=== PATIENT | male | born 1940 | race Caucasian/White ===

== ENCOUNTER 2017-07-02 13:39 | Emergency (ER) | payer MEDICARE ==
[2017-07-02 13:46] VITALS: RESP 16
[2017-07-02] MEDS ORDERED: LABETALOL 5 MG/ML VIAL MDV IVP STA (14:18)
[2017-07-02] MEDS ORDERED: SODIUM CHLORIDE 0.9% 1,000 ML IV STA (14:18)
--- NOTE | 2017-07-02 14:26 | ED ---
General Adult HPI - General Chief complaint: Dizziness Stated complaint: Dizzy, High BP Time Seen by Provider: 07/02/17 13:48 Source: patient, RN notes reviewed, old records reviewed Mode of arrival: wheelchair Limitations: no limitations - History of Present Illness Initial comments: This is a 76-year-old male the ER for evaluation of blood pressure. 2 days of increased anxiety and stress patient also noticed elevated blood pressure. Patient's neighbor and friend is brought patient in for evaluation, patient asymptomatic has no complaints of chest and first of breath no abdominal pain. Patient states he has been taking all his medications as prescribed, but does state his blood pressure seems to rise throughout the day - Related Data Home Medications Medication Instructions Recorded Confirmed Aspirin 325 mg PO DAILY 07/02/17 07/02/17 Atorvastatin [Lipitor] 40 mg PO HS 07/02/17 07/02/17 Furosemide [Lasix] 20 mg PO DAILY 07/02/17 07/02/17 Insulin Aspart Protam & Aspart 12 unit SQ AC-BID 07/02/17 07/02/17 [Novolog Mix 70-30 Flexpen Syrn] Losartan/Hydrochlorothiazide 1 tab PO DAILY 07/02/17 07/02/17 [Hyzaar 100-25 Tablet] Multivitamins, Thera [Multivitamin 1 tab PO DAILY 07/02/17 07/02/17 (formulary)] cloNIDine HCL 0.3 mg PO BID 07/02/17 07/02/17 metFORMIN HCL 1,000 mg PO BID 07/02/17 07/02/17 Allergies Allergy/AdvReac Type Severity Reaction Status Date / Time No Known Allergies Allergy Verified 07/02/17 14:19 Review of Systems ROS Statement: Those systems with pertinent positive or pertinent negative responses have been documented in the HPI. ROS Other: All systems not noted in ROS Statement are negative. Past Medical History Past Medical History: Coronary Artery Disease (CAD), Diabetes Mellitus, Hyperlipidemia, Hypertension History of Any Multi-Drug Resistant Organisms: None Reported Past Surgical History: No Surgical Hx Reported Past Psychological History: No Psychological Hx Reported Smoking Status: Former smoker Past Alcohol Use History: None Reported Past Drug Use History: None Reported General Exam Limitations: no limitations General appearance: alert, in no apparent distress Head exam: Present: atraumatic, normocephalic, normal inspection Eye exam: Present: normal appearance, PERRL, EOMI. Absent: scleral icterus, conjunctival injection, periorbital swelling ENT exam: Present: normal exam, mucous membranes moist Neck exam: Present: normal inspection. Absent: tenderness, meningismus, lymphadenopathy Respiratory exam: Present: normal lung sounds bilaterally. Absent: respiratory distress, wheezes, rales, rhonchi, stridor Cardiovascular Exam: Present: regular rate, normal rhythm, normal heart sounds. Absent: systolic murmur, diastolic murmur, rubs, gallop, clicks GI/Abdominal exam: Present: soft, normal bowel sounds. Absent: distended, tenderness, guarding, rebound, rigid Extremities exam: Present: normal inspection, full ROM, normal capillary refill. Absent: tenderness, pedal edema, joint swelling, calf tenderness Back exam: Present: normal inspection Neurological exam: Present: alert, oriented X3, CN II-XII intact Psychiatric exam: Present: normal affect, normal mood Skin exam: Present: warm, dry, intact, normal color. Absent: rash Course Vital Signs 07/02/17 07/02/17 07/02/17 13:42 14:53 15:46 Temperature 97.6 F 97 F L Pulse Rate 71 69 53 L Respiratory 16 16 16 Rate Blood Pressure 184/80 185/79 172/79 O2 Sat by Pulse 97 97 96 Oximetry 07/02/17 15:53 Temperature Pulse Rate 59 L Respiratory 16 Rate Blood Pressure 167/77 O2 Sat by Pulse Oximetry EKG Findings - EKG Comments: EKG Findings:: EKG shows sinus rhythm rate of 63, UT 150, QRS 92, QTC 452 Medical Decision Making - Medical Decision Making 76 male with elevated blood pressure labwork is normal, patient's blood pressure is improved since he has no complaints and remains a symptomatic, temperature discharged home - Lab Data Result diagrams: 07/02/17 14:04 07/02/17 14:04 Lab Results 07/02/17 07/02/17 07/02/17 Range/Units 14:04 14:04 14:04 WBC 5.3 (3.8-10.6) k/uL RBC 4.32 (4.30-5.90) m/uL Hgb 13.5 (13.0-17.5) gm/dL Hct 40.2 (39.0-53.0) % MCV 93.2 (80.0-100.0) fL MCH 31.2 (25.0-35.0) pg MCHC 33.4 (31.0-37.0) g/dL RDW 14.1 (11.5-15.5) % Plt Count 143 L (150-450) k/uL Neutrophils % 61 % Lymphocytes % 24 % Monocytes % 7 % Eosinophils % 5 % Basophils % 1 % Neutrophils # 3.2 (1.3-7.7) k/uL Lymphocytes # 1.3 (1.0-4.8) k/uL Monocytes # 0.4 (0-1.0) k/uL Eosinophils # 0.3 (0-0.7) k/uL Basophils # 0.1 (0-0.2) k/uL Sodium 140 (137-145) mmol/L Potassium 4.5 (3.5-5.1) mmol/L Chloride 102 (98-107) mmol/L Carbon Dioxide 29 (22-30) mmol/L Anion Gap 9 mmol/L BUN 25 H (9-20) mg/dL Creatinine 1.05 (0.66-1.25) mg/dL Est GFR (MDRD) Af Amer >60 (>60 ml/min/1.73 sqM) Est GFR (MDRD) Non-Af >60 (>60 ml/min/1.73 sqM) Glucose 172 H (74-99) mg/dL Calcium 9.7 (8.4-10.2) mg/dL Phosphorus 3.1 (2.5-4.5) mg/dL Magnesium 1.3 L (1.6-2.3) mg/dL Total Bilirubin 0.7 (0.2-1.3) mg/dL AST 37 (17-59) U/L ALT 41 (21-72) U/L Alkaline Phosphatase 76 (38-126) U/L Total Creatine Kinase 104 (55-170) U/L CK-MB (CK-2) 1.5 (0.0-2.4) ng/mL CK-MB (CK-2) Rel Index 1.4 Troponin I <0.012 (0.000-0.034) ng/mL Total Protein 7.6 (6.3-8.2) g/dL Albumin 4.3 (3.5-5.0) g/dL Disposition Clinical Impression: Hypertension, uncontrolled Disposition: HOME SELF-CARE Condition: Good Instructions: Hypertension (ED) Referrals: Jermain Romero DO [Primary Care Provider] - 1-2 days
[2017-07-02 14:40] LABS: Basophils # (A) 0.1 k/uL (0-0.2); Basophils % (A) 1 %; Eosinophils # (A) 0.3 k/uL (0-0.7); Eosinophils % (A) 5 %; HCT 40.2 % (39.0-53.0); HGB 13.5 gm/dL (13.0-17.5); Lymphocytes # (A) 1.3 k/uL (1.0-4.8); Lymphocytes % (A) 24 %; MCH 31.2 pg (25.0-35.0); MCHC 33.4 g/dL (31.0-37.0); MCV 93.2 fL (80.0-100.0); Mean Platelet Volume 10.2; Monocytes # (A) 0.4 k/uL (0-1.0); Monocytes % (A) 7 %; Neutrophils # (A) 3.2 k/uL (1.3-7.7); Neutrophils % (A) 61 %; Platelet Count 143 k/uL (150-450); RBC 4.32 m/uL (4.30-5.90); RDW 14.1 % (11.5-15.5); WBC 5.3 k/uL (3.8-10.6)
[2017-07-02 14:49] LABS: ALT 41 U/L (21-72); AST 37 U/L (17-59); Albumin 4.3 g/dL (3.5-5.0); Alkaline Phosphatase 76 U/L (38-126); Anion Gap 9 mmol/L; Blood Urea Nitrogen 25 mg/dL (9-20); Calcium 9.7 mg/dL (8.4-10.2); Carbon Dioxide 29 mmol/L (22-30); Chloride 102 mmol/L (98-107); Glucose 172 mg/dL (74-99); Magnesium 1.3 mg/dL (1.6-2.3); Phosphorus 3.1 mg/dL (2.5-4.5); Potassium 4.5 mmol/L (3.5-5.1); Sodium 140 mmol/L (137-145); Total Bilirubin 0.7 mg/dL (0.2-1.3); Total Protein 7.6 g/dL (6.3-8.2)
[2017-07-02 15:02] LABS: Creatine Kinase 104 U/L (55-170)
[2017-07-02] MEDS ORDERED: MAGNESIUM OXIDE 400 MG TAB PO STA (15:06)
[2017-07-02] MEDS ORDERED: hydrALAZINE HCL 20 MG/ML 1 ML VIAL IVP STA (15:06)
[2017-07-02 15:15] LABS: Creatine Kinase MB 1.5 ng/mL (0.0-2.4); Troponin I <0.012 ng/mL (0.000-0.034)
[2017-07-02 15:48] VITALS: TEMP 97
[2017-07-02 15:54] VITALS: BP 167/77; PULSE 59
== END 2017-07-02 16:29 | disposition home or self-care (01) ==
LOC: EC 13:39
DX: I10 Essential (primary) hypertension (principal); F41.9 Anxiety disorder, unspecified; R42 Dizziness and giddiness; I25.10 Atherosclerotic heart disease of native coronary artery without angina pectoris; E11.9 Type 2 diabetes mellitus without complications; E78.5 Hyperlipidemia, unspecified; Z87.891 Personal history of nicotine dependence; Z79.82 Long term (current) use of aspirin; Z79.4 Long term (current) use of insulin; Z79.899 Other long term (current) drug therapy
CPT/HCPCS: 36415; 80053; 82550; 82553; 83735; 84100; 84484; 85025; 93005; 96361; 96374; 99284

== ENCOUNTER → 2019-06-05 | Outpatient (CLI) | payer MEDICARE ==
[~2019-06-05] MED LIST: REGADENOSON 0.4 MG/5 ML SYRINGE IV ONE
--- NOTE | 2019-06-05 11:01 | ECHOF ---
Referral Reason:I10 Hypertension, I65.21 Stenosis of carotid MEASUREMENTS -------- HEIGHT: 170.2 cm WEIGHT: 87.5 kg BP: RVIDd: 3.8 cm (< 3.3) IVSd: 1.3 cm (0.6 - 1.1) LVIDd: 4.2 cm (3.9 - 5.3) LVPWd: 1.3 cm (0.6 - 1.1) IVSs: 1.7 cm LVIDs: 2.4 cm LVPWs: 1.9 cm LAESV Index (A-L): 27.04 ml/m Ao Diam: 3.0 cm (2.0 - 3.7) AV Cusp: 1.6 cm (1.5 - 2.6) LA Diam: 4.1 cm (2.7 - 3.8) MV E Kristian: 0.70 m/s MV DecT: 258 ms MV A Kristian: 0.75 m/s MV E/A Ratio: 0.94 RAP: 5.00 mmHg RVSP: 18.48 mmHg FINDINGS -------- Sinus rhythm. This was a technically adequate study. The left ventricular size is normal. There is mild concentric left ventricular hypertrophy. Overa ll left ventricular systolic function is normal with, an EF between 60 - 65 %. The diastolic fillin g pattern is normal for the age of the patient 8.37. The right ventricle is mild to moderately enlarged. Normal LA size by volume 22+/-6 ml/m2. The right atrial size is normal. Interatrial and interventricular septum intact. There is mild aortic valve sclerosis. There is no evidence of aortic regurgitation. There is no e vidence of aortic stenosis. Mild mitral regurgitation is present. Mild tricuspid regurgitation present. There is no evidence of pulmonary hypertension. The right v entricular systolic pressure, as measured by Doppler, is 18.48mmHg. There is no pulmonic regurgitation present. The aortic root size is normal. Normal inferior vena cava with normal inspiratory collapse consistent with estimated right atrial pre ssure of 5 mmHg. There is no pericardial effusion. CONCLUSIONS -------- 1. Sinus rhythm. 2. This was a technically adequate study. 3. The left ventricular size is normal. 4. There is mild concentric left ventricular hypertrophy. 5. Overall left ventricular systolic function is normal with, an EF between 60 - 65 %. 6. The diastolic filling pattern is normal for the age of the patient 8.37 7. The right ventricle is mild to moderately enlarged. 8. Normal LA size by volume 22+/-6 ml/m2. 9. The right atrial size is normal. 10. Interatrial and interventricular septum intact. 11. There is mild aortic valve sclerosis. 12. There is no evidence of aortic regurgitation. 13. There is no evidence of aortic stenosis. 14. Mild mitral regurgitation is present. 15. Mild tricuspid regurgitation present. 16. There is no evidence of pulmonary hypertension. 17. The right ventricular systolic pressure, as measured by Doppler, is 18.48mmHg. 18. There is no pulmonic regurgitation present. 19. The aortic root size is normal. 20. Normal inferior vena cava with normal inspiratory collapse consistent with estimated right atrial pressure of 5 mmHg. 21. There is no pericardial effusion. [employer] SUPERVISOR: Trinity Jacobo RDCS
--- NOTE | 2019-06-05 12:13 | EST ---
EXERCISE STRESS DATE OF SERVICE: 06/05/2019 AGE: 78 SEX: Male HT: 5'7" WT: 193 PROTOCOL: Lexiscan Cardiolite STAGE: DURATION OF EXERCISE: HEART RATE REST: 50 BLOOD PRESSURE REST: 141/62 MAXIMUM HEART RATE ACHIEVED: 80 MAXIMUM BLOOD PRESSURE: 143/68 85% MPHR: 100% MPHR: METS: INDICATIONS: CLINICAL INFORMATION: Baseline EKG revealed normal sinus rhythm with inferolateral nonspecific ST depression. With Lexiscan administration heart rate changed from 50 to 80 beats per minute. Blood pressure changed from 141/62 to 143/68. EKG remained inconclusive and patient did not have any significant symptoms. ST-segment abnormality that was seen to begin with became slightly more prominent making this an inconclusive Lexiscan stress test. By EKG criteria, this is an inconclusive Lexiscan stress test with underlying resting ST-segment abnormality. The nuclear scan results which are more pertinent will be reported by the radiologist. NINIL / IJN: [id number] /
--- NOTE | 2019-06-05 12:19 | NM ---
EXAMINATION TYPE: NM stress lexiscan cardiolite DATE OF EXAM: 06/05/2019 COMPARISON: NONE HISTORY: 78-year-old male with carotid stenosis, hypertension, diabetes, hypercholesterolemia, family history, history of tobacco use. TECHNIQUE: After the intravenous administration of 10.1 mCi Tc 99m Sestamibi - Cardiolite resting SP ECT images acquired 45 minutes post injection. The patient received 0.4mg Lexiscan, 25.9 mCi Tc 99m Sestamibi - Stress images obtained [address] injection FINDINGS: Review of stress and rest SPECT images demonstrates small to moderate area of reversibility along the anteroseptal mid to apical wall. Gated analysis shows some hypokinesis in this region. There is an e stimated left ventricular ejection fraction of 65 %. TID is calculated at 1.07, within normal limits . IMPRESSION: Exam positive for reversibility along the mid to apical anteroseptal wall.
== END | disposition home or self-care (01) ==
LOC: RADNMMAIN 07:51
PROVIDERS: ATTEND Family Medicine
DX: I08.1 Rheumatic disorders of both mitral and tricuspid valves (principal); I11.9 Hypertensive heart disease without heart failure; I65.21 Occlusion and stenosis of right carotid artery; R06.02 Shortness of breath
CPT/HCPCS: 93017; 93306; 78452; A9500; J2785

== ENCOUNTER 2019-07-10 08:52 | Observation (INO) | payer MEDICARE ==
[2019-07-10] MEDS ORDERED: SODIUM CHLORIDE 0.9% 500 ML 500 ML IV STA (09:32)
--- NOTE | 2019-07-10 09:46 | ED ---
General Adult HPI - General Chief complaint: Extremity Injury, Upper Stated complaint: rt shoulder pain Time Seen by Provider: 07/10/19 09:13 Source: patient, RN notes reviewed, old records reviewed Mode of arrival: ambulatory Limitations: no limitations - History of Present Illness Initial comments: 78-year-old male patient past medical history of coronary artery disease, type 2 diabetes, hyperlipidemia, hypertension presents to ED for chief complaint of one-week of waxing and waning right shoulder pain. Patient reports that he has been sleeping in a recliner because it is more comfortable for him and believes that this may have caused the shoulder pain or that is a pinched nerve. Denies any recent falls or trauma. Patient did recently have an abnormal stress test on 06/05/19 and is due for a heart catheterization approximately 2 weeks. Tanvi ent did recently have an echocardiogram on 1117 which displayed an ejection fraction between 60 and 65%. Patient does deny any anterior chest pain or shortness of breath. Denies any pain in the area. States that the shoulder pain is worse with range of motion, denies any pain at this time. Systemic: Pt denies fatigue, fever/chills, rash. Pt denies weakness, night sweats, weight loss. Neuro: Pt denies headache, visual disturbances, syncope or pre-syncope. HEENT: Pt denies ocular discharge or irritation, otalgia, rhinorrhea, pharyngitis or notable lymphadenopathy. Cardiopulmonary: Pt denies chest pain, SOB, heart palpitations, dyspnea on exertion. Abdominal/GI: Pt denies abdominal pain, n/v/d. : Pt denies dysuria, burning w/ urination, frequency/urgency. Denies new onset urinary or bowel incontinence. MSK: Pt denies myalgia, loss of strength or function in extremities. Neuro: Pt denies new onset weakness, paresthesias. - Related Data Home Medications Medication Instructions Recorded Confirmed Atorvastatin [Lipitor] 40 mg PO HS 07/02/17 07/10/19 Furosemide [Lasix] 40 mg PO DAILY 07/02/17 07/10/19 Losartan/Hydrochlorothiazide 1 tab PO DAILY 07/02/17 07/10/19 [Hyzaar 100-25 Tablet] Multivitamins, Thera [Multivitamin 1 tab PO DAILY 07/02/17 07/10/19 (formulary)] cloNIDine HCL 0.3 mg PO BID 07/02/17 07/10/19 metFORMIN HCL 1,000 mg PO BID 07/02/17 07/10/19 Aspirin EC [Ecotrin Low Dose] 81 mg PO DAILY 07/10/19 07/10/19 Docusate [Colace] 200 mg PO DAILY 07/10/19 07/10/19 Insulin Lispro Protamin/Lispro 12 unit SQ BID 07/10/19 07/10/19 [Humalog Mix 75-25 Kwikpen] Multivit-Min/FA/Lycopen/Lutein 1 tab PO DAILY 07/10/19 07/10/19 [Centrum Silver Men Tablet] Tamsulosin HCl [Flomax] 0.4 mg PO DAILY 07/10/19 07/10/19 Allergies Allergy/AdvReac Type Severity Reaction Status Date / Time No Known Allergies Allergy Verified 07/10/19 09:55 Review of Systems ROS Statement: Those systems with pertinent positive or pertinent negative responses have been documented in the HPI. ROS Other: All systems not noted in ROS Statement are negative. Past Medical History Past Medical History: Coronary Artery Disease (CAD), Diabetes Mellitus, Hyperlipidemia, Hypertension History of Any Multi-Drug Resistant Organisms: None Reported Past Surgical History: No Surgical Hx Reported Past Psychological History: No Psychological Hx Reported Smoking Status: Former smoker Past Alcohol Use History: None Reported Past Drug Use History: None Reported General Exam - General Exam Comments Initial Comments: Constitutional: NAD, AOX3, Pt has pleasant affect. HEENT: NC/AT, trachea midline, neck supple, no lymphadenopathy. Posterior phar ynx non erythematous, without exudates. External ears appear normal, without discharge. Mucous membranes moist. Eyes PERRLA, EOM intact. There is no scleral icterus. No pallor noted. Cardiopulmonary: RRR, no murmurs, rubs or gallops, no JVD noted. Lungs CTAB in anterior and posterior rodriguez. No peripheral edema. Abdominal exam: Abdomen soft and non-distended. Abdomen non-tender to palpation in all 4 quadrants. Bowel sounds active in LLQ. No hepatosplenomegaly. No ecchymosis Neuro: CN II-XII grossly intact. No nuchal rigidity. No raccon eyes, no acosta sign, no hemotympanum. No cervical spinal tenderness. MSK: Full active range of motion right upper extremity. Painful arc did display some diffuse swelling discomfort. No focal area of tenderness to palpation. No skin changes. No posterior calf tenderness bilaterally, homans sign negative bilaterally. Posterior tibialis and radial pulse +2 bilaterally. Sensation intact in upper and lower extremities. Full active ROM in upper and lower extremities, 5/5 stregnth. Limitations: no limitations Course Vital Signs 07/10/19 07/10/19 09:01 11:59 Temperature 97.5 F L Pulse Rate 95 90 Respiratory 18 18 Rate Blood Pressure 166/75 160/70 O2 Sat by Pulse 97 98 Oximetry Medical Decision Making - Medical Decision Making 78-year-old male patient past medical history significant for hypertension, type 2 diabetes, abnormal stress test presents to ED for chief complaint right shoulder pain. Patient reports as a waxing waning for approximately one week. Denies any pain this time, denies any injury. Physical exam displayed no skin changes, shoulder nontender to palpation. Some mild discomfort reproduced with range of motion. Vital signs are stable, afebrile. Laboratory investigation revealed mild hypomagnesemia. Troponin negative. EKG is nonischemic. Chest x- ray displayed no acute cardiopulmonary process. Admitted for week repeat x-ray for possible nodule. 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 No acute osseous abnormality seen. Shoulder is nontender there is no mention injury and patient does have history of recent abnormal stress test and is scheduled for cardiac catheterization 2 weeks. I do have suspicion that this may be possible ACS equivalent. Patient will be admitted for serial troponins and cardiology evaluation. Case discussed with Dr. Velasquez. - Lab Data Result diagrams: 07/10/19 10:30 07/10/19 10:30 Lab Results 07/10/19 07/10/19 07/10/19 Range/Units 10:30 10:30 10:30 WBC 5.7 (3.8-10.6) k/uL RBC 3.71 L (4.30-5.90) m/uL Hgb 12.0 L (13.0-17.5) gm/dL Hct 34.4 L (39.0-53.0) % MCV 92.7 (80.0-100.0) fL MCH 32.4 (25.0-35.0) pg MCHC 34.9 (31.0-37.0) g/dL RDW 12.9 (11.5-15.5) % Plt Count 131 L (150-450) k/uL Neutrophils % 68 % Lymphocytes % 18 % Monocytes % 7 % Eosinophils % 4 % Basophils % 0 % Neutrophils # 3.9 (1.3-7.7) k/uL Lymphocytes # 1.0 (1.0-4.8) k/uL Monocytes # 0.4 (0-1.0) k/uL Eosinophils # 0.2 (0-0.7) k/uL Basophils # 0.0 (0-0.2) k/uL PT 10.9 (9.0-12.0) sec INR 1.0 (<1.2) APTT 23.8 (22.0-30.0) sec Sodium 139 (137-145) mmol/L Potassium 3.9 (3.5-5.1) mmol/L Chloride 104 (98-107) mmol/L Carbon Dioxide 24 (22-30) mmol/L Anion Gap 11 mmol/L BUN 28 H (9-20) mg/dL Creatinine 1.06 (0.66-1.25) mg/dL Est GFR (CKD-EPI)AfAm 79 (>60 ml/min/1.73 sqM) Est GFR (CKD-EPI)NonAf 68 (>60 ml/min/1.73 sqM) Glucose 83 (74-99) mg/dL Calcium 9.6 (8.4-10.2) mg/dL Magnesium 1.4 L (1.6-2.3) mg/dL Total Bilirubin 0.8 (0.2-1.3) mg/dL AST 33 (17-59) U/L ALT 24 (4-49) U/L Alkaline Phosphatase 66 (38-126) U/L Troponin I (0.000-0.034) ng/mL Total Protein 6.8 (6.3-8.2) g/dL Albumin 3.8 (3.5-5.0) g/dL 07/10/19 Range/Units 10:30 WBC (3.8-10.6) k/uL RBC (4.30-5.90) m/uL Hgb (13.0-17.5) gm/dL Hct (39.0-53.0) % MCV (80.0-100.0) fL MCH (25.0-35.0) pg MCHC (31.0-37.0) g/dL RDW (11.5-15.5) % Plt Count (150-450) k/uL Neutrophils % % Lymphocytes % % Monocytes % % Eosinophils % % Basophils % % Neutrophils # (1.3-7.7) k/uL Lymphocytes # (1.0-4.8) k/uL Monocytes # (0-1.0) k/uL Eosinophils # (0-0.7) k/uL Basophils # (0-0.2) k/uL PT (9.0-12.0) sec INR (<1.2) APTT (22.0-30.0) sec Sodium (137-145) mmol/L Potassium (3.5-5.1) mmol/L Chloride (98-107) mmol/L Carbon Dioxide (22-30) mmol/L Anion Gap mmol/L BUN (9-20) mg/dL Creatinine (0.66-1.25) mg/dL Est GFR (CKD-EPI)AfAm (>60 ml/min/1.73 sqM) Est GFR (CKD-EPI)NonAf (>60 ml/min/1.73 sqM) Glucose (74-99) mg/dL Calcium (8.4-10.2) mg/dL Magnesium (1.6-2.3) mg/dL Total Bilirubin (0.2-1.3) mg/dL AST (17-59) U/L ALT (4-49) U/L Alkaline Phosphatase (38-126) U/L Troponin I <0.012 (0.000-0.034) ng/mL Total Protein (6.3-8.2) g/dL Albumin (3.5-5.0) g/dL - EKG Data -: EKG Interpreted by Me (and Dr. Velasquez) EKG Comments: Ventricular rate 61,. For one 88, QRS 92, QT/QTc 434/436. Normal sensation, normal EKG, no concern for acute ischemia. Disposition Clinical Impression: Shoulder pain Narrative: Rule out atypical ACS presentation Disposition: ADMITTED IP TO THIS [facility] Condition: Fair Is patient prescribed a controlled substance at d/c from ED?: No Referrals: Jermain Romero DO [Primary Care Provider] - 1-2 days
--- NOTE | 2019-07-10 10:03 | XR ---
EXAMINATION TYPE: XR chest 2V, XR shoulder complete 3 views RT DATE OF EXAM: 07/10/2019 COMPARISON: None HISTORY: 78-year-old male with shoulder pain FINDINGS: CHEST: Heart normal size. Atherosclerotic arch calcifications. Strandy atelectasis lower lungs. Minimal nodu larity right perihilar region probably vascular shadow. 4-6 week follow-up radiograph is recommended to reassess. RIGHT SHOULDER: Mild degenerative joint space narrowing with mild to moderate marginal spurring and capsular hypertro phy at the acromioclavicular joint. Subacromial space is preserved. No tendinous or bursal calcificat ions. No acute fracture, subluxation, or dislocation. IMPRESSION: 1. No acute cardiopulmonary process. Streaky bibasilar atelectasis. A 4-6 week follow-up radiograph i s recommended to reassess right perihilar nodularity, possible summation artifact. 2. Right shoulder: Moderate AC joint OA. No acute osseous abnormality seen.
[2019-07-10 11:04] LABS: Partial Thromboplastin Time 23.8 sec (22.0-30.0); Prothrombin Time 10.9 sec (9.0-12.0)
[2019-07-10 11:06] LABS: Albumin 3.8 g/dL (3.5-5.0); Calcium 9.6 mg/dL (8.4-10.2); Magnesium 1.4 mg/dL (1.6-2.3); Potassium 3.9 mmol/L (3.5-5.1); Total Bilirubin 0.8 mg/dL (0.2-1.3); Total Protein 6.8 g/dL (6.3-8.2)
[2019-07-10 11:28] LABS: Basophils % (A) 0 %; Eosinophils # (A) 0.2 k/uL (0-0.7); Eosinophils % (A) 4 %; HCT 34.4 % (39.0-53.0); Lymphocytes % (A) 18 %; MCH 32.4 pg (25.0-35.0); MCHC 34.9 g/dL (31.0-37.0); MCV 92.7 fL (80.0-100.0); Mean Platelet Volume 9.8; Monocytes # (A) 0.4 k/uL (0-1.0); Monocytes % (A) 7 %; Neutrophils # (A) 3.9 k/uL (1.3-7.7); Neutrophils % (A) 68 %; Platelet Count 131 k/uL (150-450); RBC 3.71 m/uL (4.30-5.90); RDW 12.9 % (11.5-15.5); WBC 5.7 k/uL (3.8-10.6)
[2019-07-10] MEDS ORDERED: MAGNESIUM OXIDE 400 MG TAB PO STA (11:30)
[2019-07-10] MEDS ORDERED: NITROGLYCERIN SL TABS 0.4 MG TAB SUBLINGUAL PRN (12:07)
[2019-07-10 13:10] LABS: Glucose,Whole Blood 114 mg/dL (75-99)
[2019-07-10 17:10] LABS: Glucose,Whole Blood 177 mg/dL (75-99)
[2019-07-10] MEDS: INSULIN ASPART (NovoLOG) 100 UNIT/ML VIAL SQ SCH ×2 (18:02→20:53)
[2019-07-10] MEDS ORDERED: hydrALAZINE HCL 25 MG TAB PO PRN (18:09)
[2019-07-10] MEDS: INSULN ASP PRT/INSULIN ASPART 100 UNIT/ML 10 ML VIAL SQ SCH (19:05)
[2019-07-10 20:10] LABS: Glucose,Whole Blood 205 mg/dL (75-99)
[2019-07-10] MEDS: metFORMIN 500 MG TAB PO SCH (20:52)
[2019-07-10] MEDS: ATORVASTATIN 40 MG TAB PO SCH (20:53)
[2019-07-10] MEDS: cloNIDine HCL 0.1 MG TAB PO SCH (20:53)
[2019-07-10] MEDS ORDERED: ACETAMINOPHEN TAB 325 MG TAB PO PRN (21:15)
--- NOTE | 2019-07-10 21:23 | P.HPIM ---
History of Present Illness H&P Date: 07/10/19 Chief Complaint: right shoulder pain patient is a 78-year-old male with a hypertension, diabetes type 2 [id number], hyperlipidemia, osteoarthritis and recent abnormal stress test came to er with the complaints of right shoulder pain on and off for the past few days. Patient was seen at Dr. Lamar's office as a follow-up appointment due to recent abnormal stress test. Patient did haveright shoulder pain and also pain between the shoulder blades.denied chest pain or shortness of breath. No leg swelling. Denied any complaints of nausea or vomiting. No headache or dizziness or lightheadedness.denied any orthopnea or PND. No radiation of the pain. Patient was sent to ER to rule out ACS. Denied any trauma to the right shoulder.right shouldeand worsens with hand movement about the head. denied any cough or sputum production. No recentillnesses. Patient had abnormal stress test on 06/05/2019. Patient is scheduled for cardiac catheterization approximately2 weeks from now.recent echocardiograejection fractn 60-60%. chest x-ray and right shoulder x-ray showed no acute cardiopulmonary process. Streaky bibasilar atelectasis. right shoulder OA joint osteoarthritis. No acute osseous abnormalities noted. EKG showed normal sinus rhythm. Troponin 2 negative. BUN 28 magnesium 1.4 blood pressure 165/80 on admission. Review of Systems Constitutional: Patient denies any fever or chills . No generalized weakness or weight loss. Abdomen: Patient denied nausea vomiting and diarrhea and abdominal pain. Cardiovascular: Patient denies any chest pain or short of breath no palpitations. Respiratory: patient denied any cough is from production. No shortness of breath Neurologic: Patient denied any numbness or tingling headache. Musculoskeletal: patient does have right shoulder painand pain in beween the shoulder blades.. Skin: Negative Psychiatric: Negative Endocrine: No heat or cold intolerance. No recent weight gain. Genitourinary: No dysuria or hematuria. All other 14 point ROS negative except the above Past Medical History Past Medical History: Coronary Artery Disease (CAD), Diabetes Mellitus, Hyperlipidemia, Hypertension, Osteoarthritis (OA) Additional Past Medical History / Comment(s): Recent abnormal stress test-to have cardiac cath in 2 weeks, IDDM type II, past bilateral feet neuropathy but pt states no longer a problem, occasional R posterior neck pain, difficulty urinating at times, past bilateral ankle edema, vertigo if stands too quickly and loses balance. History of Any Multi-Drug Resistant Organisms: None Reported Past Surgical History: No Surgical Hx Reported Additional Past Surgical History / Comment(s): L arm skin cancer removed Past Anesthesia/Blood Transfusion Reactions: Unable to Obtain Additional Past Anesthesia/Blood Transfusion Reaction / Comment(s): Pt has never had general/spinal anesthesia Smoking Status: Former smoker - Past Family History Mother Family Medical History: No Reported History Additional Family Medical History / Comment(s): Mother was healthy and lived to be 92 yrs old. Father Additional Family Medical History / Comment(s): Father choked and suffered a [place] and at the age of 75yrs. Medications and Allergies Home Medications Medication Instructions Recorded Confirmed Type Atorvastatin [Lipitor] 40 mg PO HS 07/02/17 07/10/19 History Furosemide [Lasix] 40 mg PO DAILY 07/02/17 07/10/19 History Losartan/Hydrochlorothiazide 1 tab PO DAILY 07/02/17 07/10/19 History [Hyzaar 100-25 Tablet] Multivitamins, Thera [Multivitamin 1 tab PO DAILY 07/02/17 07/10/19 History (formulary)] cloNIDine HCL 0.3 mg PO BID 07/02/17 07/10/19 History metFORMIN HCL 1,000 mg PO BID 07/02/17 07/10/19 History Aspirin EC [Ecotrin Low Dose] 81 mg PO DAILY 07/10/19 07/10/19 History Docusate [Colace] 200 mg PO DAILY 07/10/19 07/10/19 History Insulin Lispro Protamin/Lispro 12 unit SQ BID 07/10/19 07/10/19 History [Humalog Mix 75-25 Kwikpen] Multivit-Min/FA/Lycopen/Lutein 1 tab PO DAILY 07/10/19 07/10/19 History [Centrum Silver Men Tablet] Tamsulosin HCl [Flomax] 0.4 mg PO DAILY 07/10/19 07/10/19 History Allergies Allergy/AdvReac Type Severity Reaction Status Date / Time No Known Allergies Allergy Verified 07/10/19 09:55 Physical Exam Vitals: Vital Signs Temp Pulse Resp BP Pulse Ox 07/10/19 13:30 68 18 167/71 97 07/10/19 12:07 98.6 F 75 17 175/70 95 07/10/19 11:59 90 18 160/70 98 07/10/19 09:01 97.5 F L 95 18 166/75 97 Intake and Output 07/10/19 07/10/19 07/10/19 06:59 14:59 22:59 Other: Weight 88.451 kg 88.451 kg PHYSICAL EXAMINATION: Patient is lying in the bed comfortably, no acute distress, awake alert and oriented.. HEENT: Normocephalic. Neck is supple. Pupils reactive. Nostrils clear. Oral cavity is moist. Ears reveal no drainage. Neck reveals no JVD, carotid bruits, or thyromegaly. CHEST EXAMINATION: Trachea is central. Symmetrical expansion. bibasilar diminished air entry.Lung rodriguez clear to auscultation and percussion. CARDIAC: Normal S1, S2 with no gallops. No murmurs ABDOMEN: Soft. Bowel sounds normal. No organomegaly. No abdominal bruits. Extremities: reveal no edema. No clubbing or cyanosis Neurologically awake, alert, oriented x3 with well-coordinated movements. No focal deficits noted Skin: No rash or skin lesions. Psychiatric: Coperative. Nonsuicidal Musculoskeletal: No joint swelling or deformity. Normal range of motion. tenderness over the right AC joint. Results CBC & Chem 7: 07/10/19 10:30 07/10/19 10:30 Labs: Abnormal Lab Results - Last 24 Hours (Table) 07/10/19 07/10/19 07/10/19 Range/Units 10:30 10:30 12:58 RBC 3.71 L (4.30-5.90) m/uL Hgb 12.0 L (13.0-17.5) gm/dL Hct 34.4 L (39.0-53.0) % Plt Count 131 L (150-450) k/uL BUN 28 H (9-20) mg/dL POC Glucose (mg/dL) 114 H (75-99) mg/dL Magnesium 1.4 L (1.6-2.3) mg/dL Thrombosis Risk Factor Assmnt - DVT/VTE Prophylaxis DVT/VTE Prophylaxis: Pharmacologic Prophylaxis ordered - Choose All That Apply Any of the Below Risk Factors Present?: Yes Each Factor Represents 1 point: Obesity (BMI >25) Other Risk Factors: Yes Each Risk Factor Represents 2 Points: Malignancy Each Risk Factor Represents 3 Points: Age 75 years or older Other congenital or acquired thrombophilia - If yes, enter type in comment: No Thrombosis Risk Factor Assessment Total Risk Factor Score: 6 Thrombosis Risk Factor Assessment Level: High Risk Assessment and Plan Assessment: atypical chest pain. right shoulder pain and pain between the shoulder blades.likely musculoskeletal. Rule out ACS due to recent abnormal stress test Abnormal stress test on 06/05/2019. Scheduled for cardiac catheterization as an outpatient Uncontrolled hypertension Hypomagnesemia diabetes type [id number] Hyperlipidemia Osteoarthritis Bilateral feet diabeticperipheral neuropathy. Chronic right-sided neck pain Previous history of smoking DVT prophylaxisheparin subcu plan: Patient will be continued on telemetry monitoring. Serial troponins.and continue with pain management for shoulder pain. Insulin sliding scale and f ollow closely. cardiology was consulted. Further recommendations based on the clinical course. Time with Patient: Greater than 30
[2019-07-10] MEDS: MAGNESIUM SULFATE-D5W PMX 1 GM in DEXTROSE/WATER 1 100ML.BAG IVPB SCH ×2 (21:45→23:00)
[2019-07-10] MEDS: HEPARIN SODIUM,PORCINE 5,000 UNIT/ML 1 ML VIAL SQ SCH (23:00)
[2019-07-11 06:22] LABS: Glucose,Whole Blood 113 mg/dL (75-99)
[2019-07-11] MEDS: INSULIN ASPART (NovoLOG) 100 UNIT/ML VIAL SQ SCH ×4 (06:37→21:46)
[2019-07-11] MEDS: INSULN ASP PRT/INSULIN ASPART 100 UNIT/ML 10 ML VIAL SQ SCH ×2 (06:37→17:08)
[2019-07-11 06:54] LABS: HCT 33.4 % (39.0-53.0); HGB 11.9 gm/dL (13.0-17.5); MCH 33.2 pg (25.0-35.0); MCHC 35.6 g/dL (31.0-37.0); MCV 93.3 fL (80.0-100.0); Mean Platelet Volume 9.9; Platelet Count 131 k/uL (150-450); RBC 3.58 m/uL (4.30-5.90); RDW 12.9 % (11.5-15.5); WBC 5.3 k/uL (3.8-10.6)
[2019-07-11 07:13] LABS: African American GFR (CKD) >90 (>60 ml/min/1.73 sqM); Anion Gap 8 mmol/L; Calcium 9.2 mg/dL (8.4-10.2); Carbon Dioxide 28 mmol/L (22-30); Chloride 105 mmol/L (98-107); Cholesterol 83 mg/dL (<200); Glucose 101 mg/dL (74-99); HDL Cholesterol 31 mg/dL (40-60); LDL Cholesterol,Calculated 34 mg/dL (0-99); Magnesium 1.9 mg/dL (1.6-2.3); Non-African American GFR(CKD) 84 (>60 ml/min/1.73 sqM); Sodium 141 mmol/L (137-145); Triglycerides 91 mg/dL (<150)
[2019-07-11 07:28] LABS: Blood Urea Nitrogen 22 mg/dL (9-20); Potassium 3.8 mmol/L (3.5-5.1)
[2019-07-11] MEDS: cloNIDine HCL 0.1 MG TAB PO SCH ×2 (08:38→21:48)
[2019-07-11] MEDS: TAMSULOSIN 0.4 MG CAP.ER.24H PO SCH (08:38)
[2019-07-11] MEDS: FUROSEMIDE 40 MG TAB PO SCH (08:38)
[2019-07-11] MEDS: DOCUSATE 100 MG CAP PO SCH (08:42)
[2019-07-11] MEDS: HEPARIN SODIUM,PORCINE 5,000 UNIT/ML 1 ML VIAL SQ SCH ×2 (08:43→17:08)
[2019-07-11] MEDS: ASPIRIN 81 MG PO SCH (08:43)
[2019-07-11] MEDS: LOSARTAN-HCTZ 50-12.5 MG 1 EACH TAB PO SCH (08:44)
[2019-07-11] MEDS ORDERED: ASPIRIN 325 MG TAB PO SCH (09:00)
[2019-07-11 11:03] LABS: Glucose,Whole Blood 178 mg/dL (75-99)
[2019-07-11] MEDS ORDERED: LIDOCAINE 1% INJ 10MG/ML (20 ML MDV) ONE (11:09)
[2019-07-11] MEDS ORDERED: VERAPAMIL 2.5 MG/ML 2 ML AMP ONE (11:09)
[2019-07-11] MEDS ORDERED: HEPARIN SODIUM 1,000 UN/ML (10ML VL) ONE (11:10)
--- NOTE | 2019-07-11 11:17 | P.CRDCN ---
History of Present Illness Consult date: 07/11/19 History of present illness: This is a 78-year-old gentleman with history of hypertension, diabetes2, hyperlipidemia and osteoarthritis who recently had a stress test. The stress test was reported as showing ischemia involving the anteroapical areas. He was seen by Dr. FBAIAN Lamar and is scheduled to have cardiac catheterization on july. Patient is to take him to the hospital helping a friend and started having some pain in the neck area. Patient thought he might have pulled a muscle and went to the emergency room for further evaluation. In the ER. Dimitris dominguez was evaluated and was admitted to the hospital because of recent positive stress test and possible unstable angina. His EKGs and cardiac enzymes are negative. However because of positive stress test and multiple risk factors, patient is advised to have cardiac catheterization. Patient preferred to have it done today that done on July 24. Patient fully understands the risks and benefits of the procedure. Further examination depend upon the findings on the cath ( Review of Systems As per the chart Past Medical History Past Medical History: Coronary Artery Disease (CAD), Diabetes Mellitus, Hyperlipidemia, Hypertension, Osteoarthritis (OA) Additional Past Medical History / Comment(s): Recent abnormal stress test-to have cardiac cath in 2 weeks, IDDM type II, past bilateral feet neuropathy but pt states no longer a problem, occasional R posterior neck pain, difficulty urinating at times, past bilateral ankle edema, vertigo if stands too quickly and loses balance. History of Any Multi-Drug Resistant Organisms: None Reported Past Surgical History: No Surgical Hx Reported Additional Past Surgical History / Comment(s): L arm skin cancer removed Past Anesthesia/Blood Transfusion Reactions: Unable to Obtain Additional Past Anesthesia/Blood Transfusion Reaction / Comment(s): Pt has never had general/spinal anesthesia Smoking Status: Former smoker - Past Family History Mother Family Medical History: No Reported History Additional Family Medical History / Comment(s): Mother was healthy and lived to be 92 yrs old. Father Additional Family Medical History / Comment(s): Father choked and suffered a [place] and at the age of 75yrs. Medications and Allergies Home Medications Medication Instructions Recorded Confirmed Type Atorvastatin [Lipitor] 40 mg PO HS 07/02/17 07/10/19 History Furosemide [Lasix] 40 mg PO DAILY 07/02/17 07/10/19 History Losartan/Hydrochlorothiazide 1 tab PO DAILY 07/02/17 07/10/19 History [Hyzaar 100-25 Tablet] Multivitamins, Thera [Multivitamin 1 tab PO DAILY 07/02/17 07/10/19 History (formulary)] cloNIDine HCL 0.3 mg PO BID 07/02/17 07/10/19 History metFORMIN HCL 1,000 mg PO BID 07/02/17 07/10/19 History Aspirin EC [Ecotrin Low Dose] 81 mg PO DAILY 07/10/19 07/10/19 History Docusate [Colace] 200 mg PO DAILY 07/10/19 07/10/19 History Insulin Lispro Protamin/Lispro 12 unit SQ BID 07/10/19 07/10/19 History [Humalog Mix 75-25 Kwikpen] Multivit-Min/FA/Lycopen/Lutein 1 tab PO DAILY 07/10/19 07/10/19 History [Centrum Silver Men Tablet] Tamsulosin HCl [Flomax] 0.4 mg PO DAILY 07/10/19 07/10/19 History Allergies Allergy/AdvReac Type Severity Reaction Status Date / Time No Known Allergies Allergy Verified 07/10/19 09:55 Physical Exam Vitals: Vital Signs Temp Pulse Pulse Resp BP BP Pulse Ox 07/11/19 08:00 52 L 14 07/11/19 04:00 50 L 16 153/67 96 07/10/19 23:35 55 L 16 154/69 95 07/10/19 20:00 97.5 F L 61 16 136/66 96 07/10/19 19:02 65 139/60 07/10/19 18:27 65 16 07/10/19 18:20 96.1 F L 65 16 196/80 94 L 07/10/19 17:52 96 17 156/61 100 07/10/19 17:35 96 18 156/61 98 07/10/19 17:00 98.7 F 64 15 156/71 96 07/10/19 13:30 68 18 167/71 97 07/10/19 12:07 98.6 F 75 17 175/70 95 07/10/19 11:59 90 18 160/70 98 Intake and Output 07/10/19 07/11/19 07/11/19 22:59 06:59 14:59 Intake Total 210 Balance 210 Intake: IV 10 Invasive Line 1 10 Oral 200 Other: # Voids 1 1 2 Weight 86.409 kg 85 kg GENERAL EXAM: Patient is alert and oriented and doesn't appear to be in any acute distress HEENT: Normocephalic. Normal reaction of pupils, equal size, normal range of extraocular motion. No erythema or exudates in the throat. NECK: No masses, no nuchal rigidity. CHEST: No chest wall deformity. LUNGS: Equal air entry with no crackles or wheeze. HEART: S1 and S2 normal with no audible mumurs or gallops. Regular rhythm, femorals equal on both sides.. ABDOMEN: No hepatosplenomegaly, normal bowel sounds, no guarding or rigidity. SKIN: No rashes CENTRAL NERVOUS SYSTEM: No focal deficits. EXTREMITIES: No cyanosis, clubbing or edema. Results 07/11/19 06:18 07/11/19 06:18 Cardiac Enzymes 07/10/19 07/10/19 07/10/19 Range/Units 10:30 15:27 22:47 Troponin I <0.012 <0.012 <0.012 (0.000-0.034) ng/mL Coagulation 07/10/19 Range/Units 10:30 PT 10.9 (9.0-12.0) sec APTT 23.8 (22.0-30.0) sec Lipids 07/11/19 Range/Units 06:18 Triglycerides 91 (<150) mg/dL Cholesterol 83 (<200) mg/dL HDL Cholesterol 31 L (40-60) mg/dL CBC 07/10/19 07/11/19 Range/Units 10:30 06:18 WBC 5.7 5.3 (3.8-10.6) k/uL RBC 3.71 L 3.58 L (4.30-5.90) m/uL Hgb 12.0 L 11.9 L (13.0-17.5) gm/dL Hct 34.4 L 33.4 L (39.0-53.0) % Plt Count 131 L 131 L (150-450) k/uL Comprehensive Metabolic Panel 07/11/19 Range/Units 06:18 Sodium 141 (137-145) mmol/L Potassium 3.8 (3.5-5.1) mmol/L Chloride 105 (98-107) mmol/L Carbon Dioxide 28 (22-30) mmol/L BUN 22 H (9-20) mg/dL Creatinine 0.88 (0.66-1.25) mg/dL Glucose 101 H (74-99) mg/dL Calcium 9.2 (8.4-10.2) mg/dL Current Medications Generic Name Dose Route Start Last Admin Trade Name Freq PRN Reason Stop Dose Admin Acetaminophen 650 mg 07/10/19 21:15 Tylenol Tab PO Q6HR PRN Fever and/ or Pain Aspirin 81 mg 07/11/19 09:00 07/11/19 08:43 Aspirin PO 81 mg DAILY DESIREE Administration Atorvastatin Calcium 40 mg 07/10/19 21:00 07/10/19 20:53 Lipitor PO 40 mg HS DESIREE Administration Clonidine 0.3 mg 07/10/19 21:00 07/11/19 08:38 Catapres PO 0.3 mg BID DESIREE Administration Docusate Sodium 200 mg 07/11/19 09:00 07/11/19 08:42 Colace PO 200 mg DAILY DESIREE Administration Furosemide 40 mg 07/11/19 09:00 07/11/19 08:38 Lasix PO 40 mg DAILY DESIREE Administration HCTZ/Losartan Potassium 2 each 07/11/19 09:00 07/11/19 08:44 Hyzaar 50-12.5 PO 2 each DAILY DESIREE Administration Heparin Sodium (Porcine) 5,000 unit 07/11/19 00:00 07/11/19 08:43 Heparin SQ 5,000 unit Q8HR DESIREE Administration Hydralazine HCl 25 mg 07/10/19 18:09 Apresoline PO TID PRN Blood Pressure - High Insulin Aspart 0 unit 07/10/19 17:30 07/11/19 06:37 Novolog SQ Not Given ACHS [facility] Protocol Insulin Aspart 12 unit 07/10/19 18:30 07/11/19 06:37 Novolog Mix 70-30 Vial SQ Not Given AC-BID DESIREE Metformin HCl 1,000 mg 07/10/19 21:00 07/10/19 20:52 Glucophage PO 1,000 mg BID DESIREE Administration Nitroglycerin 0.4 mg 07/10/19 12:07 Nitrostat SUBLINGUAL Q5M PRN Chest Pain Tamsulosin HCl 0.4 mg 07/11/19 09:00 07/11/19 08:38 Flomax PO 0.4 mg DAILY DESIREE Administration Intake and Output 07/10/19 07/11/19 07/11/19 22:59 06:59 14:59 Intake Total 210 Balance 210 Intake: IV 10 Invasive Line 1 10 Oral 200 Other: # Voids 1 1 2 Weight 86.409 kg 85 kg 07/11/19 06:18 07/11/19 06:18 EKG Interpretations (text) Sinus rhythm Assessment and Plan (1) Neck pain Current Visit: Yes Status: Acute Code(s): M54.2 - CERVICALGIA SNOMED Code(s): 40700293 (2) Positive cardiac stress test Current Visit: Yes Status: Acute Code(s): R94.39 - ABNORMAL RESULT OF OTHER CARDIOVASCULAR FUNCTION STUDY SNOMED Code(s): 010040316 (3) Essential hypertension Current Visit: Yes Status: Acute Code(s): I10 - ESSENTIAL (PRIMARY) HYPERTENSION SNOMED Code(s): 58290516 (4) Hypercholesterolemia Current Visit: Yes Status: Acute Code(s): E78.00 - PURE HYPERCHOLESTEROLEMI A, UNSPECIFIED SNOMED Code(s): 97503850 Plan: We'll proceed with cardiac catheterization for definitive diagnosis. Further recommendations depend upon the findings on the cath
[2019-07-11] MEDS ORDERED: IV FLUID CONTINUATION 225 ML IV ONE (11:20)
[2019-07-11] MEDS: metFORMIN 500 MG TAB PO SCH (11:28)
[2019-07-11] MEDS: fentaNYL (PF) 50 MCG/ML 2 ML AMP IV ONE ×2 (11:38→11:46)
[2019-07-11] MEDS ORDERED: fentaNYL (PF) 50 MCG/ML 2 ML AMP IV ONE (11:38)
[2019-07-11] MEDS ORDERED: fentaNYL (PF) 50 MCG/ML 2 ML AMP ONE (11:38)
[2019-07-11] MEDS ORDERED: LIDOCAINE 1% INJ 10MG/ML (20 ML MDV) SQ ONE (11:40)
[2019-07-11] MEDS ORDERED: VERAPAMIL SYRINGE (5 MG/10 ML) INTRAARTER ONE (11:42)
[2019-07-11] MEDS ORDERED: IOPAMIDOL-370 125ML BTL INJ ONE ×2 (11:51)
[2019-07-11] MEDS ORDERED: RX INFO: IV CONTRAST WAS GIVEN 1 EACH MISC MISCELLANE PRN (12:01)
[2019-07-11] MEDS: SODIUM CHLORIDE 0.9% 1,000 ML IV SCH (15:23)
[2019-07-11 16:46] LABS: Glucose,Whole Blood 246 mg/dL (75-99)
--- NOTE | 2019-07-11 17:21 | P.PN ---
Subjective Progress Note Date: 07/11/19 Principal diagnosis: chest pain 78-year-old gentleman with history of hypertension, diabetes2, hyperlipidemia and osteoarthritis who recently had a stress test. The stress test was reported as showing ischemia involving the anteroapical areas. He was seen by Dr. FABIAN Lamar and is scheduled to have cardiac catheterization on july. Patient is to take him to the hospital helping a friend and started having some pain in the neck area. Patient thought he might have pulled a muscle and went to the emergency room for further evaluation. In the ER. Patient was evaluated and was admitted to the hospital because of recent positive stress test and possible unstable angina. His EKGs and cardiac enzymes are negative. However because of positive stress test and multiple risk factors, patient is advised to have cardiac catheterization. Objective - Vital Signs Vital signs: Vital Signs Temp 97.5 F L 07/10/19 20:00 Pulse 73 07/11/19 14:46 Resp 16 07/11/19 11:55 BP 135/63 07/11/19 14:46 Pulse Ox 98 07/11/19 11:55 Intake & Output 07/10/19 07/11/19 07/11/19 18:59 06:59 18:59 Intake Total 210 130 Balance 210 130 Weight 86.409 kg 85 kg Intake: IV 10 50 Invasive Line 1 10 Oral 200 80 Other: # Voids 1 2 # Bowel Movements 1 - Exam Patient is lying in the bed comfortably, no acute distress, awake alert and oriented.. HEENT: Normocephalic. Neck is supple. Pupils reactive. Nostrils clear. Oral cavity is moist. Ears reveal no drainage. Neck reveals no JVD, carotid bruits, or thyromegaly. CHEST EXAMINATION: Trachea is central. Symmetrical expansion. bibasilar diminished air entry.Lung rodriguez clear to auscultation and percussion. CARDIAC: Normal S1, S2 with no gallops. No murmurs ABDOMEN: Soft. Bowel sounds normal. No organomegaly. No abdominal bruits. Extremities: reveal no edema. No clubbing or cyanosis Neurologically awake, alert, oriented x3 with well-coordinated movements. No focal deficits noted Skin: No rash or skin lesions. - Labs CBC & Chem 7: 07/11/19 06:18 07/11/19 06:18 Labs: Abnormal Lab Results - Last 24 Hours (Table) 07/10/19 07/10/19 07/11/19 Range/Units 17:08 20:08 06:18 RBC (4.30-5.90) m/uL Hgb (13.0-17.5) gm/dL Hct (39.0-53.0) % Plt Count (150-450) k/uL BUN 22 H (9-20) mg/dL Glucose 101 H (74-99) mg/dL POC Glucose (mg/dL) 177 H 205 H (75-99) mg/dL HDL Cholesterol 31 L (40-60) mg/dL 07/11/19 07/11/19 07/11/19 Range/Units 06:18 06:21 11:01 RBC 3.58 L (4.30-5.90) m/uL Hgb 11.9 L (13.0-17.5) gm/dL Hct 33.4 L (39.0-53.0) % Plt Count 131 L (150-450) k/uL BUN (9-20) mg/dL Glucose (74-99) mg/dL POC Glucose (mg/dL) 113 H 178 H (75-99) mg/dL HDL Cholesterol (40-60) mg/dL Assessment and Plan Assessment: atypical chest pain. right shoulder pain and pain between the shoulder blades.likely musculoskeletal. Rule out ACS due to recent abnormal stress test Abnormal stress test on 06/05/2019. Scheduled for cardiac catheterization as an outpatient Uncontrolled hypertension Hypomagnesemia diabetes type [id number] Hyperlipidemia Osteoarthritis Bilateral feet diabeticperipheral neuropathy. Chronic right-sided neck pain Previous history of smoking DVT prophylaxisheparin subcu plan: Patient will be continued on telemetry monitoring. Serial troponins.and continue with pain management for shoulder pain. Insulin sliding scale and follow closely. cardiology was consulted. Further recommendations based on the clinical course.
[2019-07-11 20:57] LABS: Glucose,Whole Blood 133 mg/dL (75-99)
[2019-07-11] MEDS: ATORVASTATIN 40 MG TAB PO SCH (21:48)
[2019-07-12] MEDS: HEPARIN SODIUM,PORCINE 5,000 UNIT/ML 1 ML VIAL SQ SCH ×2 (00:47→08:29)
[2019-07-12] MEDS: SODIUM CHLORIDE 0.9% 1,000 ML IV SCH ×2 (05:43→12:11)
[2019-07-12 06:27] LABS: Basophils % (A) 0 %; Eosinophils # (A) 0.3 k/uL (0-0.7); Eosinophils % (A) 6 %; HCT 35.5 % (39.0-53.0); HGB 11.8 gm/dL (13.0-17.5); Lymphocytes % (A) 18 %; MCH 31.7 pg (25.0-35.0); MCHC 33.4 g/dL (31.0-37.0); Mean Platelet Volume 9.7; Monocytes # (A) 0.4 k/uL (0-1.0); Monocytes % (A) 6 %; Neutrophils # (A) 3.8 k/uL (1.3-7.7); Neutrophils % (A) 67 %; Platelet Count 121 k/uL (150-450); RBC 3.73 m/uL (4.30-5.90); RDW 12.9 % (11.5-15.5); WBC 5.8 k/uL (3.8-10.6)
[2019-07-12 06:52] LABS: Glucose,Whole Blood 160 mg/dL (75-99)
[2019-07-12] MEDS: INSULIN ASPART (NovoLOG) 100 UNIT/ML VIAL SQ SCH ×2 (06:52→12:11)
[2019-07-12 06:55] LABS: African American GFR (CKD) >90 (>60 ml/min/1.73 sqM); Anion Gap 7 mmol/L; Blood Urea Nitrogen 22 mg/dL (9-20); Calcium 9.2 mg/dL (8.4-10.2); Carbon Dioxide 28 mmol/L (22-30); Chloride 105 mmol/L (98-107); Glucose 163 mg/dL (74-99); Non-African American GFR(CKD) 80 (>60 ml/min/1.73 sqM); Potassium 3.4 mmol/L (3.5-5.1); Sodium 140 mmol/L (137-145)
[2019-07-12] MEDS: INSULN ASP PRT/INSULIN ASPART 100 UNIT/ML 10 ML VIAL SQ SCH (07:22)
[2019-07-12] MEDS: LOSARTAN-HCTZ 50-12.5 MG 1 EACH TAB PO SCH (08:28)
[2019-07-12] MEDS: cloNIDine HCL 0.1 MG TAB PO SCH (08:28)
[2019-07-12] MEDS: TAMSULOSIN 0.4 MG CAP.ER.24H PO SCH (08:29)
[2019-07-12] MEDS: FUROSEMIDE 40 MG TAB PO SCH (08:29)
[2019-07-12] MEDS: DOCUSATE 100 MG CAP PO SCH (08:29)
[2019-07-12] MEDS: ASPIRIN 81 MG PO SCH (08:29)
[2019-07-12 08:36] VITALS: TEMP 97.8
[2019-07-12] MEDS ORDERED: POTASSIUM CHLORIDE ER 10 MEQ TAB.ER.PRT PO STA (10:15)
[2019-07-12 11:25] VITALS: BP 155/64; PULSE 77; RESP 18
[2019-07-12 12:29] LABS: Glucose,Whole Blood 154 mg/dL (75-99)
--- NOTE | 2019-07-12 13:55 | P.PN ---
Subjective Progress Note Date: 07/12/19 This is a 78-year-old gentleman was evaluated by cardiac catheterization because of positive stress test and neck pains. He was found to have normal coronary arteries with mild intimal disease. His arterial puncture site seemed to be soft without any hematoma. Lungs are clear. Heart is regular. Patient is being discharged home. Follow-up in the office in one week Objective - Vital Signs Vital signs: Vital Signs Temp 97.8 F 07/12/19 07:50 Pulse 77 07/12/19 11:20 Resp 18 07/12/19 11:20 BP 155/64 07/12/19 11:20 Pulse Ox 95 07/12/19 11:20 Intake & Output 07/11/19 07/12/19 07/12/19 18:59 06:59 18:59 Intake Total 210 Balance 210 Weight 83.9 kg Intake: IV 50 Oral 160 Other: # Voids 2 2 # Bowel Movements 1 - Exam GENERAL EXAM: Patient is alert and oriented and doesn't appear to be in any acute distress HEENT: Normocephalic. Normal reaction of pupils, equal size, normal range of extraocular motion. No erythema or exudates in the throat. NECK: No masses, no nuchal rigidity. CHEST: No chest wall deformity. LUNGS: Equal air entry with no crackles or wheeze. HEART: S1 and S2 normal with no audible mumurs or gallops. Regular rhythm, femorals equal on both sides.. ABDOMEN: No hepatosplenomegaly, normal bowel sounds, no guarding or rigidity. SKIN: No rashes CENTRAL NERVOUS SYSTEM: No focal deficits. EXTREMITIES: No cyanosis, clubbing or edema. Radial puncture site: Soft without any hematoma. Radial pulses bounding - Labs CBC & Chem 7: 07/12/19 05:59 07/12/19 05:59 Labs: Abnormal Lab Results - Last 24 Hours (Table) 07/11/19 07/11/19 07/12/19 Range/Units 16:45 20:56 05:59 RBC 3.73 L (4.30-5.90) m/uL Hgb 11.8 L (13.0-17.5) gm/dL Hct 35.5 L (39.0-53.0) % Plt Count 121 L (150-450) k/uL Potassium (3.5-5.1) mmol/L BUN (9-20) mg/dL Glucose (74-99) mg/dL POC Glucose (mg/dL) 246 H 133 H (75-99) mg/dL 07/12/19 07/12/19 07/12/19 Range/Units 05:59 06:50 12:09 RBC (4.30-5.90) m/uL Hgb (13.0-17.5) gm/dL Hct (39.0-53.0) % Plt Count (150-450) k/uL Potassium 3.4 L (3.5-5.1) mmol/L BUN 22 H (9-20) mg/dL Glucose 163 H (74-99) mg/dL POC Glucose (mg/dL) 160 H 154 H (75-99) mg/dL Assessment and Plan (1) Neck pain Current Visit: Yes Status: Acute Code(s): M54.2 - CERVICALGIA SNOMED Code(s): 70230439 (2) Positive cardiac stress test Current Visit: Yes Status: Acute Code(s): R94.39 - ABNORMAL RESULT OF OTHER CARDIOVASCULAR FUNCTION STUDY SNOMED Code(s): 905641489 (3) Essential hypertension Current Visit: Yes Status: Acute Code(s): I10 - ESSENTIAL (PRIMARY) HYP ERTENSION SNOMED Code(s): 95949866 (4) Hypercholesterolemia Current Visit: Yes Status: Acute Code(s): E78.00 - PURE HYPERCHOLESTEROLEMIA, UNSPECIFIED SNOMED Code(s): 10091835 Plan: Patient is currently stable. Being discharged home. Follow-up with FABIAN Lamar
[2019-07-13] MEDS ORDERED: POTASSIUM CHLORIDE ER 10 MEQ TAB.ER.PRT PO SCH (09:00)
[2019-07-13] MEDS ORDERED: metFORMIN 500 MG TAB PO SCH (17:30)
--- NOTE | 2019-07-24 11:57 | P.CARDCATH ---
Date of Procedure: 07/24/19 Preoperative Diagnosis: Chest pain and positive stress test Postoperative Diagnosis: Mild coronary artery disease Procedure(s) Performed: Left heart catheterization without left ventriculography Description of Procedure: HISTORY: This is a 78-year-old gentleman who was recently evaluated by stress test because of chest pains. This was reported as showing ischemic changes. Patient is admitted to the hospital with chest pain and was advised to have a cardiac catheterization for definitive diagnosis CONSENT:I have discussed the risks, benefits and alternative therapies for the above-mentioned procedure and for both sedation/analgesia as well as necessary blood product administration, if indicated, as they pertain to this patient. The patient has indicated understanding and acceptance of the risks and procedures discussed. PROCEDURE: Patient was brought to the lab in a fasting state. Patient was given some IV sedation. The right groin is infiltrated with lidocaine and right femoral artery was entered using Seldinger technique. A 6-Nepalese catheter was left in place and selective coronary arteriography was performed. Patient tolerated the procedure well. Femoral angiogram was performed and Angio-Seal was applied for hemostasis. No immediate complications were noted and patient was transferred to [facility] in a stable condition. Conscious Sedation: Versed 0mg Fentanyl 25g Duration 20minutes HEMODYNAMICS: The aortic pressure is about a 130/70. The left ventricle end- diastolic pressure is about 12-15. There was no gradient across the aortic valve SELECTIVE CORONARY ARTERIOGRAPHY: LEFT MAIN: Short and divides into left anterior descending and left circumflex immediately THE LEFT ANTERIOR DESCENDING CORONARY ARTERY: This is a good caliber vessel giving rise to good-sized diagonal branch. There is mild disease in the mid LAD. There is also about 30-40% ostial stenosis of the first diagonal. THE INTERMEDIATE CORONARY ARTERY: This is a small- caliber vessel free of any significant focal lesions THE LEFT CIRCUMFLEX AND IS CORONARY ARTERY: The circumflex and is coronary artery is a fairly caliber vessel giving rise a small OM branch. Circumflex and its branches are free of occlusive disease THE RIGHT CORONARY ARTERY: This is a moderate caliber vessel with mild diffuse disease without any Sigmund focal occlusive lesions LEFT VENTRICULOGRAPHY: Not performed FINAL IMPRESSION: Mild coronary artery disease with about 30-40% lesion of the ostium of the diagonal PLAN: Maximum medical therapy and this factor modification PROGNOSIS: Fair
--- NOTE | 2019-07-26 12:01 | P.DS ---
Providers Date of admission: 07/10/19 12:57 Expected date of discharge: 07/12/19 Attending physician: Theodora Martin Consults: 07/10/19 12:07 Consult Physician Urgent Consulting Provider: Sylvia Ford Consult Reason/Comments: rule out atypical ACS Do you want consulting provider notified?: Yes Primary care physician: [facility] Course: 78-year-old gentleman with history of hypertension, diabetes2, hyperlipidemia and osteoarthritis who recently had a stress test. The stress test was reported as showing ischemia involving the anteroapical areas. He was seen by Dr. FABIAN Lamar and is scheduled to have cardiac catheterization on july. Patient is to take him to the hospital helping a friend and started having some pain in the neck area. Patient thought he might have pulled a muscle and went to the emergency room for further evaluation. In the ER. Patient was evaluated and was admitted to the hospital because of recent positive stress test and possible unstable angina. His EKGs and cardiac enzymes are negative. However because of positive stress test and multiple risk factors, patient is advised to have cardiac catheterization. cardiac catheterization because of positive stress test and neck pains. He was found to have normal coronary arteries with mild intimal disease. His arterial puncture site seemed to be soft without any hematoma. Lungs are clear. Heart is regular. Patient is being discharged home. Patient Condition at Discharge: Fair Plan - Discharge Summary Discharge Rx Participant: No New Discharge Prescriptions: New hydrALAZINE HCL [Apresoline] 25 mg PO TID PRN #90 tab PRN Reason: Blood Pressure - High Potassium Chloride ER [K-Dur 10] 10 meq PO DAILY #30 tab.er.prt Continue cloNIDine HCL 0.3 mg PO BID Multivitamins, Thera [Multivitamin (formulary)] 1 tab PO DAILY Furosemide [Lasix] 40 mg PO DAILY metFORMIN HCL 1,000 mg PO BID Losartan/Hydrochlorothiazide [Hyzaar 100-25 Tablet] 1 tab PO DAILY Atorvastatin [Lipitor] 40 mg PO HS Tamsulosin HCl [Flomax] 0.4 mg PO DAILY Docusate [Colace] 200 mg PO DAILY Insulin Lispro Protamin/Lispro [humaLOG Mix 75-25 Kwikpen] 12 unit SQ BID Aspirin EC [Ecotrin Low Dose] 81 mg PO DAILY Multivit-Min/FA/Lycopen/Lutein [Centrum Silver Men Tablet] 1 tab PO DAILY Discharge Medication List Atorvastatin [Lipitor] 40 mg PO HS 07/02/17 [History] Furosemide [Lasix] 40 mg PO DAILY 07/02/17 [History] Losartan/Hydrochlorothiazide [Hyzaar 100-25 Tablet] 1 tab PO DAILY 07/02/17 [History] Multivitamins, Thera [Multivitamin (formulary)] 1 tab PO DAILY 07/02/17 [History] cloNIDine HCL 0.3 mg PO BID 07/02/17 [History] metFORMIN HCL 1,000 mg PO BID 07/02/17 [History] Aspirin EC [Ecotrin Low Dose] 81 mg PO DAILY 07/10/19 [History] Docusate [Colace] 200 mg PO DAILY 07/10/19 [History] Insulin Lispro Protamin/Lispro [humaLOG Mix 75-25 Kwikpen] 12 unit SQ BID 07/10/19 [History] Multivit-Min/FA/Lycopen/Lutein [Centrum Silver Men Tablet] 1 tab PO DAILY 07/10/19 [History] Tamsulosin HCl [Flomax] 0.4 mg PO DAILY 07/10/19 [History] Potassium Chloride ER [K-Dur 10] 10 meq PO DAILY #30 tab.er.prt 07/12/19 [Rx] hydrALAZINE HCL [Apresoline] 25 mg PO TID PRN #90 tab 07/12/19 [Rx] Follow up Appointment(s)/Referral(s): Parker Lamar MD [STAFF PHYSICIAN] - 1 Week (Office is closed. Please call to schedule appointment) Jermain Romero DO [Primary Care Provider] - 1-2 days (Office is closed. Please call to schedule appointment) Patient Instructions/Handouts: Heart Healthy Diet (DC), After Radial Heart Catheterization (GEN) Discharge Disposition: HOME SELF-CARE
== END 2019-07-12 14:05 | disposition home or self-care (01) ==
LOC: EC 08:52 → 3SCARD 12:57
PROVIDERS: ADMIT Hospitalist; ATTEND Hospitalist
DX: I25.10 Atherosclerotic heart disease of native coronary artery without angina pectoris (principal); I10 Essential (primary) hypertension; E83.42 Hypomagnesemia; E11.42 Type 2 diabetes mellitus with diabetic polyneuropathy; E78.5 Hyperlipidemia, unspecified; E78.00 Pure hypercholesterolemia, unspecified; M19.011 Primary osteoarthritis, right shoulder; G89.29 Other chronic pain; M54.2 Cervicalgia; Z87.891 Personal history of nicotine dependence; J98.11 Atelectasis; E66.9 Obesity, unspecified; Z68.29 Body mass index [BMI] 29.0-29.9, adult; Z79.899 Other long term (current) drug therapy; Z79.82 Long term (current) use of aspirin; Z79.4 Long term (current) use of insulin; Z87.448 Personal history of other diseases of urinary system; Z85.828 Personal history of other malignant neoplasm of skin; Z82.49 Family history of ischemic heart disease and other diseases of the circulatory system
CPT/HCPCS: 96365; 96372 ×2; 93005 ×2; 99285; 36415; 93458; 80061; 80053; 80048 ×2; 83735 ×2; 84484; 85025 ×2; 85027; 85610; 85730; 73030; 71046; G0378 ×3; C1769; C1894; J1644 ×4; J2001; J3010; J3475; Q9967